=== PATIENT | male | born 2000 | race Two or more races ===

== ENCOUNTER 2022-01-26 17:11 | Emergency (ER) | payer OTHER ==
[~2022-01-26] VITALS: Ht 180.3 cm; Wt 74.8 kg
[2022-01-26] MEDS ORDERED: SERTRALINE20 MG/1 ML PO (18:21)
[2022-01-26] MEDS ORDERED: ADVAIR 100-501 EACH IH (18:22)
[2022-01-26] MEDS ORDERED: ALLERGY RELIE15.8 ML NASAL (18:22)
[2022-01-26] MEDS ORDERED: ZYRTEC10 MG PO (18:22)
== END 2022-01-26 19:00 | disposition home or self-care (01) ==
LOC: ER 17:11
DX: B35.9 Dermatophytosis, unspecified (principal); Z91.018 Allergy to other foods; Z91.010 Allergy to peanuts